=== PATIENT | female | born 1965 | race Caucasian/White ===

== ENCOUNTER 2017-09-25 08:22 | Emergency (ER) | payer SELFPAY ==
[2017-09-25] MEDS ORDERED: Sodium Chloride 0.9% 1,000 ML IV ONE (08:25)
[2017-09-25] MEDS ORDERED: Ketorolac 30 MG/ML SDV IVPUSH ONE (08:25)
[2017-09-25] MEDS ORDERED: Ondansetron 4 MG/2 ML SDV IVPUSH ONE (08:25)
--- NOTE | 2017-09-25 08:27 | EDM.PDOC ---
ED HPI GENERAL MEDICAL PROBLEM - General Chief Complaint: Abdominal Pain Stated Complaint: ABDOMINAL PAIN Time Seen by Provider: 09/25/17 08:26 Source of Information: Reports: Patient - History of Present Illness INITIAL COMMENTS - FREE TEXT/NARRATIVE: HISTORY AND PHYSICAL: History of present illness: [Patient presents with 10 out of 10 abdominal pain low abdomen, she states she has had discomfort for one month, she was recently seen through the walk-in clinic and diagnosed with constipation, pain has been increasing for the last 2 days where is currently not tolerable, she was provided 4 mg of morphine initially and then later requiring a milligram of Dilaudid currently rating pain 4 out of 10 No current fever nausea vomiting diarrhea constipation chest pain shortness breath headache dizziness palpitation no bowel or urine symptoms ] Review of systems: As per history of present illness and below otherwise all systems reviewed and negative. Past medical history: As per history of present illness and as reviewed below otherwise noncontributory. Surgical history: As per history of present illness and as reviewed below otherwise noncontributory. Social history: No reported history of drug or alcohol abuse. Family history: As per history of present illness and as reviewed below otherwise noncontributory. Physical exam: HEENT: Atraumatic, normocephalic, pupils reactive, negative for conjunctival pallor or scleral icterus, mucous membranes moist, throat clear, neck supple, nontender, trachea midline. Lungs: Clear to auscultation, breath sounds equal bilaterally, chest nontender. Heart: S1S2, regular, negative for clicks, rubs, or JVD. Abdomen: Firm diffusely tender with light palpation. Negative for masses or hepatosplenomegaly. Negative for costovertebral tenderness. Pelvis: Stable nontender. Genitourinary: Deferred. Rectal: Deferred. Extremities: Atraumatic, negative for cords or calf pain. Neurovascular unremarkable. Neuro: Awake, alert, oriented. Cranial nerves II through XII unremarkable. Cerebellum unremarkable. Motor and sensory unremarkable throughout. Exam nonfocal. Diagnostics: [CBC CMP UA lipase ]CT abdomen with and without contrast Ultrasound abdomen and pelvis Therapeutics: [Normal saline 1 L bolus Zofran 8 mg IV ]Morphine 4 mg IV Dilaudid 1 mg IV Dilaudid 1 mg IV Normal saline 1 25 mL per hour Patient discussed with Dr. Flaherty he had been down to see imaging, patient had elected to be treated in and she was transferred as such Impression: Large cystic lesion lower central abdomen 17 cm x 9 cm x 15 cm [ abdominal pain ] Definitive disposition and diagnosis as appropriate pending reevaluation and review of above. Right Lower Abdomen Pain Score (Numeric/FACES): 10 - Related Data Allergies Allergy/AdvReac Type Severity Reaction Status Date / Time No Known Allergies Allergy Verified 09/25/17 08:28 Home Meds: Home Meds buPROPion HCl [buPROPion HCl ER] 150 mg PO BID 09/25/17 [History] ED ROS GENERAL - Review of Systems Review Of Systems: ROS reveals no pertinent complaints other than HPI. ED EXAM, GENERAL - Physical Exam Exam: See Below Course - Vital Signs Last Recorded V/S: Last Vital Signs Temp 97.7 F 09/25/17 15:00 Pulse 65 09/25/17 15:00 Resp 16 09/25/17 15:00 BP 134/64 09/25/17 15:00 Pulse Ox 95 09/25/17 15:00 - Orders/Labs/Meds Orders: Active Orders 24 hr Category Date Time Status Abdomen Pelvis w wo Cont [CT] Stat Exams 09/25/17 08:40 Taken Pelvis Non OB Ltd [US] Stat Exams 09/25/17 11:14 Taken UA W/MICROSCOPIC [URIN] Stat Lab 09/25/17 10:40 Ordered Labs: Laboratory Tests 09/25/17 09/25/17 09/25/17 Range/Units 08:31 08:31 10:40 WBC 7.49 (4.0-11.0) K/uL RBC 4.96 (4.30-5.90) M/uL Hgb 15.2 (12.0-16.0) g/dL Hct 44.3 (36.0-46.0) % MCV 89.3 (80.0-98.0) fL MCH 30.6 (27.0-32.0) pg MCHC 34.3 (31.0-37.0) g/dL RDW Std Deviation 41.6 (28.0-62.0) fl RDW Coeff of Elvia 13 (11.0-15.0) % Plt Count 297 (150-400) K/uL MPV 9.20 (7.40-12.00) fL Neut % (Auto) 46.2 L (48.0-80.0) % Lymph % (Auto) 41.1 H (16.0-40.0) % [place] % (Auto) 8.3 (0.0-15.0) % Eos % (Auto) 3.7 (0.0-7.0) % Baso % (Auto) 0.7 (0.0-1.5) % Neut # (Auto) 3.5 (1.4-5.7) K/uL Lymph # (Auto) 3.1 H (0.6-2.4) K/uL [place] # (Auto) 0.6 (0.0-0.8) K/uL Eos # (Auto) 0.3 (0.0-0.7) K/uL Baso # (Auto) 0.1 (0.0-0.1) K/uL Nucleated RBC % 0.0 /100WBC Nucleated RBCs # 0 K/uL Sodium 142 (136-145) mmol/L Potassium 3.3 L (3.5-5.1) mmol/L Chloride 107 (98-107) mmol/L Carbon Dioxide 24.3 (21.0-32.0) mmol/L BUN 20 H (7.0-18.0) mg/dL Creatinine 1.0 (0.6-1.0) mg/dL Est Cr Clr Drug Dosing 54.44 mL/min Estimated GFR (MDRD) 58.2 ml/min Glucose 107 H (74-106) mg/dL Calcium 9.5 (8.5-10.1) mg/dL Total Bilirubin 0.3 (0.2-1.0) mg/dL AST 49 H (15-37) IU/L ALT 72 H (14-63) IU/L Alkaline Phosphatase 79 (46-116) U/L Troponin I < 0.050 (0.000-0.056) ng/mL Total Protein 7.1 (6.4-8.2) g/dL Albumin 3.8 (3.4-5.0) g/dL Globulin 3.3 (2.0-3.5) g/dL Albumin/Globulin Ratio 1.2 L (1.3-2.8) Lipase 185 (73-393) U/L Urine Color YELLOW Urine Appearance CLEAR Urine pH 7.5 (5.0-8.0) Ur Specific [place] 1.010 (1.001-1.035) Urine Protein NEGATIVE (NEGATIVE) mg/dL Urine Glucose (UA) NEGATIVE (NEGATIVE) mg/dL Urine Ketones NEGATIVE (NEGATIVE) mg/dL Urine Occult Blood NEGATIVE (NEGATIVE) Urine Nitrite NEGATIVE (NEGATIVE) Urine Bilirubin NEGATIVE (NEGATIVE) Urine Urobilinogen 0.2 (<2.0) EU/dL Ur Leukocyte Esterase SMALL (NEGATIVE) Urine RBC NONE SEEN (0-2/HPF) Urine WBC 3-5 (0-5/HPF) Ur Epithelial Cells OCCASIONAL (NONE-FEW) Amorphous Sediment LIGHT (NEGATIVE) Urine Bacteria FEW (NEGATIVE) Urine Mucus NOT SEEN (NONE-MOD) Meds: Medications Discontinued Medications Generic Name Dose Route Start Last Admin Trade Name Freq PRN Reason Stop Dose Admin Hydromorphone HCl 1 mg 09/25/17 09:27 09/25/17 09:33 Dilaudid IVPUSH 09/25/17 09:28 1 mg ONETIME ONE Administration Hydromorphone HCl 1 mg 09/25/17 11:16 09/25/17 11:20 Dilaudid IVPUSH 09/25/17 11:17 1 mg ONETIME ONE Administration Hydromorphone HCl Confirm 09/25/17 14:55 09/25/17 15:19 Dilaudid Administered 09/25/17 14:56 Not Given Dose 2 mg .ROUTE .STK-MED ONE Hydromorphone HCl 1 mg 09/25/17 14:59 09/25/17 15:08 Dilaudid IVPUSH 09/25/17 15:00 1 mg ONETIME ONE Administration Sodium Chloride 1,000 mls @ 999 mls/hr 09/25/17 08:25 09/25/17 08:39 Normal Saline IV 09/25/17 09:25 999 mls/hr STAT ONE Administration Sodium Chloride 1,000 mls @ 125 mls/hr 09/25/17 11:30 09/25/17 11:46 Normal Saline IV 125 mls/hr STAT TOBIAS Administration Iopamidol 85 ml 09/25/17 09:30 09/25/17 09:31 Isovue Multipack-370 (76%) IVPUSH 09/25/17 09:31 85 ml ONETIME ONE Administration Ketorolac Tromethamine 30 mg 09/25/17 08:25 09/25/17 08:39 Toradol IVPUSH 09/25/17 08:26 Not Given ONETIME ONE Morphine Sulfate 2 mg 09/25/17 08:31 09/25/17 08:39 Morphine IVPUSH 09/25/17 08:32 Not Given ONETIME ONE Morphine Sulfate 2 mg 09/25/17 08:32 09/25/17 08:39 Morphine IVPUSH 09/25/17 08:33 Not Given ONETIME ONE Morphine Sulfate 4 mg 09/25/17 08:36 09/25/17 08:41 Morphine IVPUSH 09/25/17 08:37 4 mg ONETIME ONE Administration Ondansetron HCl 8 mg 09/25/17 08:25 09/25/17 08:40 Zofran IVPUSH 09/25/17 08:26 8 mg ONETIME ONE Administration Departure - Departure Time of Disposition: 09:33 Disposition: DC/Tfer to Acute Hospital 02 Condition: Fair Clinical Impression: Peritoneal cyst, Abdominal pain - Discharge Information Referrals: Michael Quiñonez MD [Primary Care Provider] - Forms: ED Department Discharge - My Orders Last 24 Hours: My Active Orders 09/25/17 08:40 Abdomen Pelvis w wo Cont [CT] Stat 09/25/17 10:40 UA W/MICROSCOPIC [URIN] Stat 09/25/17 11:14 Pelvis Non OB Ltd [US] Stat - Assessment/Plan Last 24 Hours: My Active Orders 09/25/17 08:40 Abdomen Pelvis w wo Cont [CT] Stat 09/25/17 10:40 UA W/MICROSCOPIC [URIN] Stat 09/25/17 11:14 Pelvis Non OB Ltd [US] Stat
[2017-09-25] MEDS ORDERED: Morphine 4 MG/ML Syringe IVPUSH ONE ×3 (08:31→08:36)
[2017-09-25 08:56] LABS: CHLORIDE,CL 107 mmol/L (98-107); SODIUM,NA 142 mmol/L (136-145)
[2017-09-25] MEDS ORDERED: HYDROmorphone 2 MG/ML SDV IVPUSH ONE ×3 (09:27→14:59)
[2017-09-25] MEDS ORDERED: Iopamidol 755 MG/ML 200 ML Multipack Bottle IVPUSH ONE (09:30)
[2017-09-25] MEDS ORDERED: Sodium Chloride 0.9% 1,000 ML IV SCH (11:30)
[2017-09-25] MEDS ORDERED: HYDROmorphone 1 MG/ML Syringe IVPUSH ONE (14:53)
[2017-09-25] MEDS ORDERED: HYDROmorphone 2 MG/ML SDV ONE (14:55)
--- NOTE | 2017-09-26 15:13 | CT ---
EXAM DATE: 09/25/17 PATIENT'S AGE: 52 Patient: ELISA VENTURA Facility: [place], [place] Site . Site : 1965 Study: CT Abdomen/Pelvis W/ and W/O Cont [id number]/29/2018 9:29:54 AM Ordering Physician: Fredi Harper Final Report: INDICATION: Abdominal pain. TECHNIQUE: CT abdomen and pelvis acquired with and without IV contrast. COMPARISON: None FINDINGS: Lower chest: Bilateral breast implants. Liver: 1.5 cm low-density lesion in the left hepatic lobe appears to demonstrate peripheral nodular enhancement suggesting a hemangioma. There are a few additional subcentimeter low-density liver lesions which are too small to characterize. Spleen: Unremarkable. Pancreas: Unremarkable. Gallbladder and bile ducts: Gallbladder is normal. Minimal central intrahepatic biliary ductal prominence. The proximal common bile duct is mildly dilated tapering to a normal caliber distally. Kidneys: Unremarkable. Adrenal glands: Unremarkable. GI tract: No acute bowel abnormality. Vascular structures: No sign of aneurysm. Lymph nodes: Unremarkable. Miscellaneous: No ascites. No free air. Pelvic Organs: 5.8 cm peripherally calcified mass in the uterus consistent with fibroid. Urinary bladder is normal. There is a 16.7 x 9.1 x 14.7 cm cystic lesion in the central lower abdomen with internal fluid density. No solid component identified. Bones: No acute abnormality. No suspicious bone lesion. IMPRESSION: 1. Large cystic lesion in the central lower abdomen. No solid component identified. Differential considerations include gastrointestinal duplication cyst, peritoneal inclusion cyst and mesenteric cyst. Recommend surgical consultation. 2. Lesion in the left hepatic lobe favors hemangioma but is incompletely characterized on this exam. This can be further evaluated with liver MRI. 3. Moderate size calcified uterine fibroid. Dictated by Robbie Small MD @ 09/25/2017 9:59:19 AM Please note that all CT scans at this facility use dose modulation, iterative reconstruction, and/or weight-based dosing when appropriate to reduce radiation dose to as low as reasonably achievable. Dictated by: Robbie Small MD @ 09/25/2017 10:01:36 ----- ADDENDUM ----- Addendum: : At the posterior aspect of the previously described cystic mass is a soft tissue lesion measuring 6.1 x 3.3 x 3.9 cm (axial image 96, coronal image 44). There is a small calcification posteriorly within this lesion. This may represent the right ovary. Therefore the differential considerations for the abdominal/pelvic cystic mass would include ovarian etiologies including mucinous cystadenocarcinoma, serous carcinoma and cystadenoma. Surgical/gynecologic consultation is recommended. Dictated by Robbie Small MD @ Sep 25 2017 12:44PM (Electronic Signature) Report Signed by Proxy. BUD
--- NOTE | 2017-09-26 15:41 | US ---
EXAM DATE: 09/25/17 PATIENT'S AGE: 52 Patient: ELISA VENTURA Facility: [place], [place] Site . Site : 1965 Study: US Pelvis [id number]/25/2017 11:59:46 AM Ordering Physician: Fredi Harper Final Report: INDICATION: Pelvic mass; further assessment. COMPARISON: CT abdomen and pelvis with intravenous contrast September 25, 2017. TECHNIQUE: Transabdominal and transvaginal pelvic ultrasound. FINDINGS: Difficult to identified the uterus adequately on this study. 5.7 x 5.4 cm calcified uterine fibroid within the fundus. 1.4 x 1 cm fibroid identified in the lower uterine segment. Difficult to identified the adnexal adequately. 16 x 8 x 14 cm cystic mass superior to the uterus not originating from the uterus identified. This most likely is originating from the right adnexa as noted on the CT study. 6.5 x 3.2 cm soft tissue mass identified in the right adnexa with calcifications by CT. The left adnexa was identified adequately on the previous CT. IMPRESSION: 1. 16 x 8 x 14 cm cystic mass most likely arising from the right adnexa; rule out large ovarian cystoma. 2. Calcified uterine fibroids. 3. CT is more diagnostic and informative than the pelvic ultrasound. Dictated by Juarez Mendoza MD @ Sep 25 2017 12:16PM (Electronic Signature) Report Signed by Proxy. BUD
== END 2017-09-25 15:15 ==
LOC: MW.ED 08:22
DX: K66.8 Other specified disorders of peritoneum (principal)
CPT/HCPCS: 36415; 74178; 76857; 80053; 81001; 83690; 84484; 85025; 96361; 96374; 96375; 96376; 99285; J1170; J2270; J2405; J7040; Q9967